=== PATIENT | female | born 1980 | race Hispanic/Latino ===

== ENCOUNTER 2024-07-15 16:41 | Observation (INO) | payer BC ==
[2024-07-15] MEDS: Carboprost 250 MCG/ML AMP IM PRN (16:54)
[2024-07-15] MEDS ORDERED: Acetaminophen 500 MG TAB PO PRN (16:55)
[2024-07-15] MEDS ORDERED: hydrALAZINE 20 MG/ML VIAL SLOW IVP PRN (16:55)
[2024-07-15] MEDS ORDERED: Promethazine HCl 25 MG/ML VIAL IM PRN ×2 (16:55→19:01)
[2024-07-15] MEDS ORDERED: Ondansetron PF 4 MG/2 ML Vial IVP PRN ×2 (16:55→20:06)
[2024-07-15] MEDS: Carboprost 250 MCG/ML AMP IM SCH (17:12)
[2024-07-15] MEDS: Diphenoxylate HCl/Atropine Tablet PO PRN (17:22)
[2024-07-15 17:43] LABS: Hematocrit 39.9 % (34.9-44.5); Hemoglobin 13.7 g/dL (12.0-15.5); Mean Corpuscular HGB CONC 34.3 g/dL (32.0-36.0); Mean Corpuscular Hemoglobin 28.8 pg (27.0-33.0); Mean Corpuscular Volume 83.8 fL (81.6-98.3); Mean Platelet Volume 11.6 fL (7.4-10.4); Platelet Count 273 10x3/uL (150-450); RBC Distribution Width 14.5 % (11.5-14.5); Red Blood Cell (RBC) Count 4.76 10x6/uL (3.90-5.03); White Blood Cell (WBC) Count 14.2 10x3/uL (3.5-10.5)
[2024-07-15 18:14] LABS: Syphilis Antibody Nonreactive (Nonreactive); Syphilis Antibody Index 0.06 S/CO (<1.00 Non-Reactive)
[2024-07-15 18:15] LABS: HBsAg Index 0.64 S/CO (0-0.99); HIV (1/2) Antibody/Antigen Non-Reactive (NonReactive); Hep B Surf Ag - L&D Non-Reactive S/CO (NonReactive)
[2024-07-15] MEDS ORDERED: CEFAZOLIN 2 GM in Sodium Chloride 0.9% 100 ML IVPB SCH (18:45)
[2024-07-15] MEDS ORDERED: CEFAZOLIN 2 GM VIAL ONE (19:00)
[2024-07-15] MEDS ORDERED: Ondansetron HCl/PF 4 MG/2 ML Vial IVP PRN (19:01)
[2024-07-15] MEDS ORDERED: SUCCINYLCHOLINE/SOD CL,ISO/PF 200 MG/10 ML SYRINGE FS ONE (19:17)
[2024-07-15] MEDS ORDERED: fentaNYL 50 mcg/mL 1 mL Vial ONE (19:17)
[2024-07-15] MEDS ORDERED: Ondansetron PF 4 MG/2 ML Vial ONE (19:17)
[2024-07-15] MEDS ORDERED: Dexamethasone 10 MG/ML VIAL ONE (19:17)
[2024-07-15] MEDS ORDERED: Lidocaine 1% PF 5 ML VIAL ONE (19:17)
[2024-07-15] MEDS ORDERED: PROPOFOL 20 ML ONE (19:17)
[2024-07-15] MEDS ORDERED: Midazolam HCl 2 mg/2 ml Vial ONE (19:19)
[2024-07-15] MEDS ORDERED: HYDROcodone/Acetaminophen 5/325 mg Tablet PO PRN ×2 (20:05)
[2024-07-15] MEDS ORDERED: Ketorolac Tromethamine 30 MG (1 mL) VIAL IVP PRN (20:05)
[2024-07-15] MEDS ORDERED: Lactated Ringer's 1,000 ML IV SCH (20:15)
[2024-07-15] MEDS: Misoprostol 200 MCG TAB ONE (20:28)
[2024-07-15] MEDS ORDERED: Doxycycline 100 MG CAP PO SCH (21:00)
[2024-07-15] MEDS: Doxycycline 100 MG CAP PO SCH (21:18)
[2024-07-16] MEDS ORDERED: Prenatal Vitamin 1 TAB PO SCH (12:00)
== END 2024-07-15 22:08 | disposition home or self-care (01) ==
LOC: CSHLD/OP 16:41 → CSHLD 19:41
PROVIDERS: ADMIT Student in an Organized Health Care Education/Training Program; ATTEND Student in an Organized Health Care Education/Training Program
PROC: 10E0XZZ Delivery of Products of Conception, External Approach (ICD-10-PCS; principal; 2024-07-15)
PROC: 10D17ZZ Extraction of Products of Conception, Retained, Via Natural or Artificial Opening (ICD-10-PCS; 2024-07-15)
DX: O60.12X0 Preterm labor second trimester with preterm delivery second trimester, not applicable or unspecified (principal); O72.0 Third-stage hemorrhage; O13.2 Gestational [pregnancy-induced] hypertension without significant proteinuria, second trimester; Z37.1 Single stillbirth; Z3A.18 18 weeks gestation of pregnancy; Z79.82 Long term (current) use of aspirin; Z79.899 Other long term (current) drug therapy
CPT/HCPCS: 36416; 85027; 86780; 86850; 86900; 86901; 87340; 87389; 88300; 88305; 96372; 99285; G0378; J1100; J2250; J2405; J2704; J3010